=== PATIENT | male | born 1960 | race Caucasian/White ===

== ENCOUNTER 2023-07-12 12:37 | Emergency (ER) | payer OTHER ==
[2023-07-12 14:01] LABS: APPEARANCE,URINE CLOUDY (Clear); BILIRUBIN,URINE 1+ (Negative); COLOR,URINE AMBER (Yellow); GLUCOSE,URINE NEGATIVE (Negative); KETONES,URINE NEGATIVE (Negative); LEUKOCYTE ESTERASE,URINE NEGATIVE (Negative); NITRITE,URINE NEGATIVE (Negative); OCCULT BLOOD,URINE 3+ (Negative); PROTEIN,URINE 2+ (Negative); UROBILINOGEN,URINE 0.2 (0.2-1.0)
[2023-07-12 14:11] LABS: BACTERIA,URINE FEW /hpf (FEW); EPITHELIAL CELLS,URINE 0-5 /hpf (0-5); MUCUS,URINE FEW /hpf (FEW); RBC,URINE >100 /hpf (0-5); WBC,URINE 0-5 /hpf (0-5)
[2023-07-12 14:41] LABS: BASOPHILS ABSOLUTE AUTO 0.02 K/mm3 (0.01-0.08); BASOPHILS PERCENT AUTO 0.2 % (0.1-1.2); EOSINOPHILS ABSOLUTE AUTO 0.03 K/mm3 (0.04-0.54); EOSINOPHILS PERCENT AUTO 0.3 (0.8-7.0); HEMATOCRIT 46.3 % (40.1-51.0); HEMOGLOBIN 15.9 gm/dl (13.7-17.5); IMMATURE GRAN ABSOLUTE AUTO 0.03 K/mm3 (0.00-0.10); IMMATURE GRAN PERCENT AUTO 0.3 % (<=1.0); LYMPHOCYTES ABSOLUTE AUTO 2.26 K/mm3 (1.32-3.57); LYMPHOCYTES PERCENT AUTO 24.6 % (21.8-53.1); MEAN CORPUSCULAR HEMOGLOBIN 31.1 pg (25.7-32.2); MEAN CORPUSCULAR HGB CONC 34.3 g/dl (32.2-35.5); MEAN CORPUSCULAR VOLUME 90.6 fl (79.0-92.2); MEAN PLATELET VOLUME 10.7 fl (9.4-12.3); MONOCYTES ABSOLUTE AUTO 1.31 K/mm3 (0.30-0.82); MONOCYTES PERCENT AUTO 14.3 % (5.3-12.2); NEUTROPHILS ABSOLUTE AUTO 5.52 K/mm3 (1.78-5.38); NEUTROPHILS PERCENT AUTO 60.3 % (34.0-67.9); PLATELET COUNT,PLT 208 K/mm3 (163-337); RED BLOOD CELL COUNT 5.11 M/mm3 (4.63-6.08); WHITE BLOOD CELL COUNT,WBC 9.17 K/mm3 (4.23-9.07)
[2023-07-12 15:05] LABS: A/G RATIO 1.1 (1-2); ALBUMIN 3.9 g/dl (3.4-5.0); ANION GAP 13.7 (5-15); BILIRUBIN TOTAL 0.5 mg/dL (0.2-1.0); BUN/CREATININE RATIO 13.3 (14-18); CALCIUM 9.2 mg/dL (8.5-10.1); CREATININE 1.2 mg/dL (0.7-1.3); EST CRCL DRUG DOSING (CG) 65.06 mL/min; POTASSIUM,K 3.7 mEq/L (3.5-5.1); PROTEIN TOTAL,TP 7.5 g/dl (6.4-8.2)
== END 2023-07-12 15:44 | disposition home or self-care (01) ==
LOC: JD.ED 12:37
DX: N20.1 Calculus of ureter (principal)
CPT/HCPCS: 36415; 74176; 74176-26; 80053; 81001; 85025; 87086; 87088; 87186; 99284

== ENCOUNTER 2024-04-02 21:43 | Emergency (ER) | payer OTHER | END 2024-04-02 22:33 | disposition home or self-care (01) | LOC: JD.ED 21:43 | DX: I89.0 Lymphedema, not elsewhere classified (principal); Z86.16 Personal history of COVID-19; Z79.899 Other long term (current) drug therapy | CPT/HCPCS: 99283 ==

== ENCOUNTER 2024-04-12 02:29 | Emergency (ER) | payer OTHER ==
[2024-04-12 03:34] LABS: BASOPHILS ABSOLUTE AUTO 0.1 K/mm3 (0.0-0.2); BASOPHILS PERCENT AUTO 0.9 % (0.0-1.0); EOSINOPHILS ABSOLUTE AUTO 0.1 K/mm3 (0.0-0.4); EOSINOPHILS PERCENT AUTO 1.7 % (0.0-6.0); HEMATOCRIT 40.8 % (42.0-52.0); IMMATURE GRAN ABSOLUTE AUTO 0.01 K/mm3 (0.00-0.05); IMMATURE GRAN PERCENT AUTO 0.1 % (0.0-0.4); LYMPHOCYTES ABSOLUTE AUTO 2.8 K/mm3 (1.0-4.8); LYMPHOCYTES PERCENT AUTO 35.7 % (24.0-44.0); MEAN CORPUSCULAR HEMOGLOBIN 30.5 pg (28.0-32.0); MEAN CORPUSCULAR HGB CONC 34.3 g/dl (32.0-36.0); MEAN CORPUSCULAR VOLUME 88.9 fl (83.0-99.0); MEAN PLATELET VOLUME 10.7 fl (9.4-12.4); MONOCYTES ABSOLUTE AUTO 0.8 K/mm3 (0.0-0.8); MONOCYTES PERCENT AUTO 10.3 % (0.0-8.0); NEUTROPHILS PERCENT AUTO 51.3 % (41.0-71.0); PLATELET COUNT,PLT 203 K/mm3 (150-400); RED BLOOD CELL COUNT 4.59 M/mm3 (4.52-5.90)
[2024-04-12 03:35] LABS: APPEARANCE,URINE CLEAR (Clear); BILIRUBIN,URINE NEGATIVE (Negative); COLOR,URINE YELLOW (Yellow); GLUCOSE,URINE NEGATIVE (Negative); KETONES,URINE NEGATIVE (Negative); LEUKOCYTE ESTERASE,URINE TRACE (Negative); NITRITE,URINE NEGATIVE (Negative); OCCULT BLOOD,URINE 2+ (Negative); PROTEIN,URINE NEGATIVE (Negative); UROBILINOGEN,URINE 0.2 (0.2-1.0)
[2024-04-12 04:09] LABS: ANION GAP 14.4 (5-15); BUN/CREATININE RATIO 12.2 (14-18); CREATININE 0.9 mg/dL (0.7-1.3); EST CRCL DRUG DOSING (CG) 91.01 mL/min; POTASSIUM,K 3.4 mEq/L (3.5-5.1)
[2024-04-12 04:10] LABS: A/G RATIO 1.1 (1-2); ALBUMIN 3.5 g/dl (3.4-5.0); BILIRUBIN TOTAL 0.4 mg/dL (0.2-1.0); PROTEIN TOTAL,TP 6.6 g/dl (6.4-8.2)
[2024-04-12 04:35] LABS: BACTERIA,URINE MANY /hpf (FEW); EPITHELIAL CELLS,URINE 0-5 /hpf (0-5); MUCUS,URINE NOT SEEN /hpf (FEW); RBC,URINE 0-5 /hpf (0-5)
== END 2024-04-12 06:19 | disposition home or self-care (01) ==
LOC: JD.ED 02:29
DX: N40.1 Benign prostatic hyperplasia with lower urinary tract symptoms (principal); N13.8 Other obstructive and reflux uropathy; N39.0 Urinary tract infection, site not specified; T83.021A Displacement of indwelling urethral catheter, initial encounter; Y73.2 Prosthetic and other implants, materials and accessory gastroenterology and urology devices associated with adverse incidents; Z79.899 Other long term (current) drug therapy; Z86.16 Personal history of COVID-19
CPT/HCPCS: 36415; 51702; 80053; 81001; 81003; 85025; 87086; 99283

== ENCOUNTER 2024-04-20 18:20 | Emergency (ER) | payer OTHER ==
[2024-04-20 19:22] LABS: APPEARANCE,URINE SLT CLOUDY (Clear); BILIRUBIN,URINE NEGATIVE (Negative); COLOR,URINE YELLOW (Yellow); GLUCOSE,URINE NEGATIVE (Negative); KETONES,URINE NEGATIVE (Negative); LEUKOCYTE ESTERASE,URINE 1+ (Negative); NITRITE,URINE NEGATIVE (Negative); OCCULT BLOOD,URINE 3+ (Negative); PH,URINE 5.5 (5.0-8.0); PROTEIN,URINE NEGATIVE (Negative); UROBILINOGEN,URINE 0.2 (0.2-1.0)
[2024-04-20 19:58] LABS: AMORPHOUS SEDIMENT,URINE FEW /hpf (NOT SEEN); BACTERIA,URINE FEW /hpf (FEW); MUCUS,URINE NOT SEEN /hpf (FEW); RBC,URINE 40-50 /hpf (0-5); SQUAMOUS EPITHELIAL CELLS,UR 0-5 /hpf (0-5); WBC,URINE 20-30 /hpf (0-5); YEAST BUDDING,URINE MODERATE (NOT SEEN)
== END 2024-04-20 20:25 | disposition home or self-care (01) ==
LOC: JD.ED 18:20
DX: T83.031A Leakage of indwelling urethral catheter, initial encounter (principal); N40.1 Benign prostatic hyperplasia with lower urinary tract symptoms; Z86.16 Personal history of COVID-19; Z79.899 Other long term (current) drug therapy
CPT/HCPCS: 51702; 51798; 81001; 81003; 87086; 99283

== ENCOUNTER 2024-04-30 18:38 | Emergency (ER) | payer OTHER | END 2024-04-30 19:55 | disposition home or self-care (01) | LOC: JD.ED 18:38 | DX: T83.9XXA Unspecified complication of genitourinary prosthetic device, implant and graft, initial encounter (principal); Z79.899 Other long term (current) drug therapy; Z86.16 Personal history of COVID-19 | CPT/HCPCS: 51702; 99282; 99283 ==

== ENCOUNTER 2024-05-30 07:42 | Emergency (ER) | payer OTHER ==
[2024-05-30] MEDS: Lidocaine 2% 11 ML Jelly Filled Syringe MUCMEM ONE (08:31)
[2024-05-30] MEDS: Lidocaine 2% 11 ML Jelly Filled Syringe ONE (08:32)
[2024-05-30 08:53] LABS: APPEARANCE,URINE CLOUDY (Clear); BILIRUBIN,URINE NEGATIVE (Negative); COLOR,URINE YELLOW (Yellow); GLUCOSE,URINE NEGATIVE (Negative); KETONES,URINE NEGATIVE (Negative); LEUKOCYTE ESTERASE,URINE 3+ (Negative); NITRITE,URINE POSITIVE (Negative); OCCULT BLOOD,URINE 3+ (Negative); PROTEIN,URINE 2+ (Negative); UROBILINOGEN,URINE 0.2 (0.2-1.0)
[2024-05-30 10:01] LABS: RBC,URINE 30-40 /hpf (0-5); WBC,URINE TOO NUMEROUS TO CNT /hpf (0-5)
[2024-05-30 10:02] LABS: BACTERIA,URINE MODERATE /hpf (FEW); MUCUS,URINE NOT SEEN /hpf (FEW); SQUAMOUS EPITHELIAL CELLS,UR 0-5 /hpf (0-5)
== END 2024-05-30 09:31 | disposition home or self-care (01) ==
LOC: JD.ED 07:42
DX: T83.091A Other mechanical complication of indwelling urethral catheter, initial encounter (principal); N39.0 Urinary tract infection, site not specified; Z79.899 Other long term (current) drug therapy; Z87.891 Personal history of nicotine dependence
CPT/HCPCS: 51702; 81001; 87086; 99284; A9270; 87088; 87186

== ENCOUNTER 2024-07-20 15:00 | Inpatient (IN) | payer OTHER ==
[2024-07-20] MEDS ORDERED: Dextrose 5%-0.9% NaCl 1,000 ML IV SCH (16:30)
[2024-07-20] MEDS: Ibuprofen 600 MG Tab PO ONE (17:02)
[2024-07-20] MEDS: Sodium Chloride 0.9% 1,000 ML IV SCH ×2 (17:02→21:48)
[2024-07-20 17:06] LABS: BASOPHILS ABSOLUTE AUTO 0.1 K/mm3 (0.0-0.2); BASOPHILS PERCENT AUTO 0.3 % (0.0-1.0); EOSINOPHILS PERCENT AUTO 0.1 % (0.0-6.0); HEMATOCRIT 44.1 % (42.0-52.0); IMMATURE GRAN ABSOLUTE AUTO 0.06 K/mm3 (0.00-0.05); IMMATURE GRAN PERCENT AUTO 0.4 % (0.0-0.4); LYMPHOCYTES ABSOLUTE AUTO 1.7 K/mm3 (1.0-4.8); LYMPHOCYTES PERCENT AUTO 10.2 % (24.0-44.0); MEAN CORPUSCULAR HEMOGLOBIN 29.9 pg (28.0-32.0); MEAN PLATELET VOLUME 10.4 fl (9.4-12.4); MONOCYTES ABSOLUTE AUTO 1.3 K/mm3 (0.0-0.8); MONOCYTES PERCENT AUTO 8.1 % (0.0-8.0); NEUTROPHILS ABSOLUTE AUTO 13.5 K/mm3 (1.8-7.7); NEUTROPHILS PERCENT AUTO 80.9 % (41.0-71.0); PLATELET COUNT,PLT 228 K/mm3 (150-400); RED BLOOD CELL COUNT 5.01 M/mm3 (4.52-5.90); WHITE BLOOD CELL COUNT,WBC 16.61 K/mm3 (3.9-11.3)
[2024-07-20 17:41] LABS: HEMOGLOBIN A1C 5.7 %
[2024-07-20 17:43] LABS: LACTIC ACID 0.8 mmol/L (0.4-2.0)
[2024-07-20 17:50] LABS: A/G RATIO 0.9 (1-2); ALBUMIN 3.6 g/dl (3.4-5.0); ANION GAP 13.8 (5-15); BILIRUBIN TOTAL 0.8 mg/dL (0.2-1.0); C-REACTIVE PROTEIN 14.75 mg/dL (<0.30); EST CRCL DRUG DOSING (CG) 81.91 mL/min; MAGNESIUM 1.9 mg/dL (1.8-2.4); POTASSIUM,K 3.8 mEq/L (3.5-5.1); PROTEIN TOTAL,TP 7.5 g/dl (6.4-8.2)
[2024-07-20 17:51] LABS: APPEARANCE,URINE CLOUDY (Clear); BILIRUBIN,URINE NEGATIVE (Negative); COLOR,URINE YELLOW (Yellow); GLUCOSE,URINE NEGATIVE (Negative); KETONES,URINE TRACE (Negative); LEUKOCYTE ESTERASE,URINE 2+ (Negative); NITRITE,URINE NEGATIVE (Negative); OCCULT BLOOD,URINE 3+ (Negative); PH,URINE 8.5 (5.0-8.0); PROTEIN,URINE 2+ (Negative); UROBILINOGEN,URINE 0.2 (0.2-1.0)
[2024-07-20 17:55] LABS: CORONAVIRUS COVID-19 NAA NEGATIVE (NEGATIVE); INFLUENZA A NAA NEGATIVE (NEGATIVE); RESPIRATORY SYNCYTIAL VIR NAA NEGATIVE (NEGATIVE)
[2024-07-20 18:13] LABS: BACTERIA,URINE MANY /hpf (FEW); MUCUS,URINE FEW /hpf (FEW); RBC,URINE 75-100 /hpf (0-5); SQUAMOUS EPITHELIAL CELLS,UR 0-5 /hpf (0-5); WBC,URINE 50-75 /hpf (0-5)
[2024-07-20] MEDS ORDERED: Ondansetron 4 MG Tab.DIS PO PRN (18:16)
[2024-07-20] MEDS ORDERED: Morphine 2 MG/ML SYRINGE IVPUSH PRN (18:16)
[2024-07-20] MEDS: Piperacillin/Tazobactam 4.5 GM in Sodium Chloride 0.9% 100 ML IV ONE (18:51)
[2024-07-20] MEDS: Piperacillin/Tazobactam 4.5 GM in Sodium Chloride 0.9% 100 ML IV SCH ×2 (19:58→21:48)
[2024-07-21] MEDS: Pantoprazole 40 MG Tab.CR PO SCH (05:27)
[2024-07-21] MEDS: oxyCODONE 5 MG Tab PO PRN (05:28)
[2024-07-21 05:34] LABS: BASOPHILS ABSOLUTE AUTO 0.1 K/mm3 (0.0-0.2); BASOPHILS PERCENT AUTO 0.5 % (0.0-1.0); EOSINOPHILS ABSOLUTE AUTO 0.1 K/mm3 (0.0-0.4); HEMATOCRIT 40.9 % (42.0-52.0); HEMOGLOBIN 13.8 gm/dl (14.0-18.0); IMMATURE GRAN ABSOLUTE AUTO 0.04 K/mm3 (0.00-0.05); IMMATURE GRAN PERCENT AUTO 0.4 % (0.0-0.4); LYMPHOCYTES ABSOLUTE AUTO 2.1 K/mm3 (1.0-4.8); LYMPHOCYTES PERCENT AUTO 18.3 % (24.0-44.0); MEAN CORPUSCULAR HEMOGLOBIN 29.9 pg (28.0-32.0); MEAN CORPUSCULAR HGB CONC 33.7 g/dl (32.0-36.0); MEAN CORPUSCULAR VOLUME 88.7 fl (83.0-99.0); MEAN PLATELET VOLUME 10.4 fl (9.4-12.4); MONOCYTES ABSOLUTE AUTO 1.4 K/mm3 (0.0-0.8); MONOCYTES PERCENT AUTO 12.3 % (0.0-8.0); NEUTROPHILS ABSOLUTE AUTO 7.6 K/mm3 (1.8-7.7); NEUTROPHILS PERCENT AUTO 67.5 % (41.0-71.0); PLATELET COUNT,PLT 198 K/mm3 (150-400); RED BLOOD CELL COUNT 4.61 M/mm3 (4.52-5.90); WHITE BLOOD CELL COUNT,WBC 11.23 K/mm3 (3.9-11.3)
[2024-07-21 05:59] LABS: ANION GAP 10.8 (5-15); C-REACTIVE PROTEIN 11.55 mg/dL (<0.30); CALCIUM 8.2 mg/dL (8.5-10.1); EST CRCL DRUG DOSING (CG) 81.91 mL/min; POTASSIUM,K 3.8 mEq/L (3.5-5.1)
[2024-07-21] MEDS: Enoxaparin 40 MG/0.4 ML Syringe SUBCUT SCH (09:41)
[2024-07-22 05:35] LABS: BASOPHILS ABSOLUTE AUTO 0.1 K/mm3 (0.0-0.2); BASOPHILS PERCENT AUTO 0.5 % (0.0-1.0); EOSINOPHILS ABSOLUTE AUTO 0.1 K/mm3 (0.0-0.4); EOSINOPHILS PERCENT AUTO 1.2 % (0.0-6.0); HEMATOCRIT 39.4 % (42.0-52.0); HEMOGLOBIN 13.3 gm/dl (14.0-18.0); IMMATURE GRAN ABSOLUTE AUTO 0.03 K/mm3 (0.00-0.05); IMMATURE GRAN PERCENT AUTO 0.3 % (0.0-0.4); LYMPHOCYTES ABSOLUTE AUTO 2.5 K/mm3 (1.0-4.8); LYMPHOCYTES PERCENT AUTO 24.2 % (24.0-44.0); MEAN CORPUSCULAR HEMOGLOBIN 29.6 pg (28.0-32.0); MEAN CORPUSCULAR HGB CONC 33.8 g/dl (32.0-36.0); MEAN CORPUSCULAR VOLUME 87.6 fl (83.0-99.0); MEAN PLATELET VOLUME 9.9 fl (9.4-12.4); MONOCYTES ABSOLUTE AUTO 1.3 K/mm3 (0.0-0.8); MONOCYTES PERCENT AUTO 12.4 % (0.0-8.0); NEUTROPHILS ABSOLUTE AUTO 6.4 K/mm3 (1.8-7.7); NEUTROPHILS PERCENT AUTO 61.4 % (41.0-71.0); PLATELET COUNT,PLT 200 K/mm3 (150-400); WHITE BLOOD CELL COUNT,WBC 10.34 K/mm3 (3.9-11.3)
[2024-07-22 06:06] LABS: ANION GAP 10.7 (5-15); C-REACTIVE PROTEIN 7.39 mg/dL (<0.30); CALCIUM 8.4 mg/dL (8.5-10.1); EST CRCL DRUG DOSING (CG) 81.91 mL/min; POTASSIUM,K 3.7 mEq/L (3.5-5.1)
[2024-07-22] MEDS ORDERED: Non-Formulary Medication 1 Each (Omeprazole 20 MG Capsule.Dr) PO SCH (09:00)
[2024-07-23 05:56] LABS: BASOPHILS ABSOLUTE AUTO 0.1 K/mm3 (0.0-0.2); BASOPHILS PERCENT AUTO 0.5 % (0.0-1.0); EOSINOPHILS ABSOLUTE AUTO 0.3 K/mm3 (0.0-0.4); EOSINOPHILS PERCENT AUTO 2.6 % (0.0-6.0); HEMOGLOBIN 13.7 gm/dl (14.0-18.0); IMMATURE GRAN ABSOLUTE AUTO 0.03 K/mm3 (0.00-0.05); IMMATURE GRAN PERCENT AUTO 0.3 % (0.0-0.4); LYMPHOCYTES ABSOLUTE AUTO 2.5 K/mm3 (1.0-4.8); LYMPHOCYTES PERCENT AUTO 24.3 % (24.0-44.0); MEAN CORPUSCULAR HEMOGLOBIN 29.6 pg (28.0-32.0); MEAN CORPUSCULAR HGB CONC 34.3 g/dl (32.0-36.0); MEAN CORPUSCULAR VOLUME 86.4 fl (83.0-99.0); MEAN PLATELET VOLUME 9.9 fl (9.4-12.4); MONOCYTES PERCENT AUTO 9.6 % (0.0-8.0); NEUTROPHILS ABSOLUTE AUTO 6.3 K/mm3 (1.8-7.7); NEUTROPHILS PERCENT AUTO 62.7 % (41.0-71.0); PLATELET COUNT,PLT 220 K/mm3 (150-400); RED BLOOD CELL COUNT 4.63 M/mm3 (4.52-5.90); WHITE BLOOD CELL COUNT,WBC 10.09 K/mm3 (3.9-11.3)
[2024-07-23 06:12] LABS: ANION GAP 11.7 (5-15); BUN/CREATININE RATIO 7.8 (14-18); CALCIUM 8.5 mg/dL (8.5-10.1); CREATININE 0.9 mg/dL (0.7-1.3); EST CRCL DRUG DOSING (CG) 91.01 mL/min; POTASSIUM,K 3.7 mEq/L (3.5-5.1)
[2024-07-23] MEDS: Acetaminophen 325 MG Tab PO PRN (09:02)
[2024-07-23] MEDS: SULFASALAZINE 500 MG PO SCH (14:14)
[2024-07-25] MEDS: Potassium Chloride 20 MEQ Tab.ER PO ONE (15:33)
== END 2024-07-25 15:36 | disposition home or self-care (01) | DRG 872 ==
LOC: JD.ED 15:00 → JD.MS 18:16
PROVIDERS: ADMIT Family Medicine; ATTEND Family Medicine
DX: A41.9 Sepsis, unspecified organism (principal); R50.9 Fever, unspecified; T81.40XA Infection following a procedure, unspecified, initial encounter; N39.0 Urinary tract infection, site not specified; K50.90 Crohn's disease, unspecified, without complications; E87.1 Hypo-osmolality and hyponatremia; D84.9 Immunodeficiency, unspecified; K21.9 Gastro-esophageal reflux disease without esophagitis; M19.90 Unspecified osteoarthritis, unspecified site; N40.1 Benign prostatic hyperplasia with lower urinary tract symptoms; E86.0 Dehydration; E87.8 Other disorders of electrolyte and fluid balance, not elsewhere classified; R33.8 Other retention of urine; M54.50 Low back pain, unspecified; Z97.3 Presence of spectacles and contact lenses; Z79.899 Other long term (current) drug therapy; Z87.442 Personal history of urinary calculi
CPT/HCPCS: 0241U; 36415; 51702; 71045; 71045-26; 80048; 80053; 81001; 83036; 83605; 83735; 83880; 84484; 85025; 86140; 87040; 87077; 87086; 87088; 87154; 87186; 93005; 93010; 96360; 97110-GP; 97161-GP; 99223; 99232; 99239; 99284; 99285-25; A9270-GY; J1650; J2543; J3490; J7030